=== PATIENT | male | born 1945 | race Caucasian/White ===

== ENCOUNTER 2020-10-29 10:34 | Day surgery (SDC) | payer MEDICARE, BC ==
[2020-10-22 16:12] LABS: BASOPHILS # (AUTO) 0.1 X10'3 (0-0.2); BASOPHILS % (AUTO) 1.1 % (0-1); EOSINOPHILS # (AUTO) 0.2 X10'3 (0-0.9); EOSINOPHILS % (AUTO) 2.6 % (0-6); LYMPHOCYTES # (AUTO) 1.4 X10'3 (1.1-4.8); LYMPHOCYTES % (AUTO) 17.2 % (21-51); MEAN CORPUSCULAR HEMOGLOBIN 31.2 PG (27.0-31.0); MEAN CORPUSCULAR HGB CONC 33.6 g/dL (33.0-36.5); MEAN CORPUSCULAR VOLUME 92.9 FL (78-98); MEAN PLATELET VOLUME 8.1 FL (7.4-10.4); MONOCYTES # (AUTO) 0.6 X10'3 (0-0.9); MONOCYTES % (AUTO) 6.9 % (2-12); NEUTROPHILS # (AUTO) 5.7 X10'3 (1.8-7.7); NEUTROPHILS % (AUTO) 72.2 % (42-75); PRE OP HEMATOCRIT 43.3 % (42.0-52.0); PRE OP HEMOGLOBIN 14.5 g/dL (14.0-17.9); PRE OP PLATELET COUNT 276 X10'3 (140-440); RED BLOOD COUNT 4.65 X10'6 (4.70-6.10); RED CELL DISTRIBUTION WIDTH 14.2 % (11.5-14.5)
[2020-10-22 16:23] LABS: ALBUMIN 3.4 G/DL (3.4-5.0); ALBUMIN/GLOBULIN RATIO 0.9 (1.1-1.5); ALKALINE PHOSPHATASE 169 IU/L (46-116); BLOOD UREA NITROGEN 16 MG/DL (7-18); CALCIUM 8.5 MG/DL (8.5-10.1); CHLORIDE 104 MMOL/L (99-107); PRE OP ALT 23 U/L (30-65); PRE OP ANION GAP 6 (8-16); PRE OP AST 15 U/L (10-37); PRE OP BILIRUB, TOTAL 0.9 MG/DL (0.0-1.0); PRE OP GLUCOSE 108 MG/DL (70-104); PRE OP POTASSIUM 4.2 MMOL/L (3.4-5.1); PRE OP SODIUM 141 MMOL/L (135-145); TOTAL CARBON DIOXIDE 30.8 MMOL/L (24-32); TOTAL PROTEIN 7.1 G/DL (6.4-8.2); eGFR 73 ML/MIN
[~2020-10-29] VITALS: Ht 180.3 cm; Wt 116.0 kg
[2020-10-29] VITALS (7 sets, daily range): BP systolic 113–155; BP diastolic 71–95
[~2020-10-29 10:34] MED LIST: AVADART PO; HYTRIN PO; MULT-1085 PO; VIT D PO; ceFAZolin 2gm in dextrose, iso 50 ML IV ONE; famotidine 20mg tablet PO ONE; ringers solution, lacted 1,000 ML IV SCH
[2020-10-29] MEDS ORDERED: BUPIVAcaine/PF 2.5 mg/ml (0.25%) 30ml vial ONE (12:23)
[2020-10-29] MEDS ORDERED: cloNIDine hcl/PF 100mcg/ml inj ONE (12:51)
[2020-10-29] MEDS ORDERED: fentaNYL/PF 50MCG/1 ML 2ML syringe ONE (12:52)
[2020-10-29] MEDS ORDERED: midazolam 2 mg/2 ml injection ONE (12:53)
[2020-10-29] MEDS ORDERED: ROPIVAcaine 0.5% (5mg/ml) 30ml vial ONE (12:56)
[2020-10-29] MEDS ORDERED: propofol inj 20 ML IV ONE (12:56)
[2020-10-29] MEDS ORDERED: sevoflurane 250ml liquid IH ONE (13:01)
[2020-10-29] MEDS ORDERED: dexamethasone sod phosphate 4mg/ml inj. ONE (13:53)
[2020-10-29] MEDS ORDERED: ondansetron/PF 4mg/2ml inj ONE (13:53)
[2020-10-29] MEDS ORDERED: morphine 2 MG/ML inj. syringe IV PRN (14:00)
[2020-10-29] MEDS ORDERED: ringers solution, lacted 1,000 ML IV SCH (14:00)
[2020-10-29] MEDS ORDERED: proCHLORperazine 10 MG/2 ml inj IV PRN (14:00)
[2020-10-29] MEDS ORDERED: meperidine/PF 25mg/ml syringe IV PRN ×3 (14:00)
[2020-10-29] MEDS ORDERED: ondansetron/PF 4mg/2ml inj IV PRN (14:00)
--- NOTE | 2020-10-29 14:10 | NUR ---
Received from OR via [facility] , accompanied by Anesthesiologist KHOI and report given by Anesthesiolgist. PATIENT WITH 20G PIV IN LEFT UE RUNNING LR AT 100. DENIES PAIN .RIGHT UE IN SPLINT THAT IS CDI. + CAP REFILL. 10L MASK ON WITH 97% SATURATIONS. CO PAIN. WILL MEDICATE AND REASSESS Addendum: 10/29/20 at 1417 by Rk Curiel RN, RN Amended: Links added.
[2020-10-29] MEDS: morphine 4 MG/ML inj SYRINge IV PRN ×2 (14:22→14:37)
[2020-10-29] MEDS ORDERED: acetaminophen 1,000mg/100ml IV 100 ML IV PRN (14:45)
[2020-10-29] MEDS ORDERED: HYDROmorphone/PF 0.2 MG/ML SYRINGE IV PRN ×2 (14:45)
--- NOTE | 2020-10-29 15:10 | NUR ---
I HAVE REVIEWED D/C INSTRUCTIONS WITH PATIENT AND FAMILY AND THEY HAVE VERBALIZED UNDERSTANDING. PATIENT D/C HOME WITH ALL BELONGINGS AND FAMILY GAVE TRANSPORT HOME. PATIENT GIVEN ALL DC INSTRUCTIONS. VSS. PAIN AT A TOLERABLE LEVEL. DRESSINGS CDI. Addendum: 10/29/20 at 1643 by Rk Curiel RN, RN Amended: Links added.
== END 2020-10-29 15:10 | disposition home or self-care (01) ==
LOC: PAS 10:34
PROVIDERS: ATTEND Orthopaedic Surgery Hand Surgery
DX: S52.501A Unspecified fracture of the lower end of right radius, initial encounter for closed fracture (principal); G56.01 Carpal tunnel syndrome, right upper limb; X58.XXXA Exposure to other specified factors, initial encounter; Y93.89 Activity, other specified; Y92.89 Other specified places as the place of occurrence of the external cause; Y99.8 Other external cause status; M25.531 Pain in right wrist; N40.0 Benign prostatic hyperplasia without lower urinary tract symptoms; M19.90 Unspecified osteoarthritis, unspecified site; E66.01 Morbid (severe) obesity due to excess calories; Z87.891 Personal history of nicotine dependence; Z85.828 Personal history of other malignant neoplasm of skin; Z79.899 Other long term (current) drug therapy; G89.18 Other acute postprocedural pain
CPT/HCPCS: 25607; 36415; 64415; 64721; 71046; 76942; 80053; 82948; 85025; 87635; 93005; A6222; C1713; J0131; J0735; J1100; J1170; J2175; J2250; J2270; J2405; J2704; J3010; J3490; J7120; A4215; A4618; A6449; A7000; J2795

== ENCOUNTER 2024-09-20 15:50 | Emergency (ER) | payer MEDICARE, BC ==
[~2024-09-20] VITALS: Ht 177.8 cm; Wt 117.0 kg
[~2024-09-20 15:50] MED LIST changes: -ceFAZolin 2gm in dextrose, iso 50 ML IV ONE; -famotidine 20mg tablet PO ONE; -ringers solution, lacted 1,000 ML IV SCH
[2024-09-20 15:53] VITALS: TEMP 98
[2024-09-20] MEDS ORDERED: CEPH-585 PO (16:30)
[2024-09-20] MEDS ORDERED: HYDR-3965 PO (16:30)
[2024-09-20] MEDS: LIDOcaine 1% 30ml preserv. free vial IJ ONE (16:44)
[2024-09-20 17:21] VITALS: BP 130/76; PULSE 67; RESP 18; O2SAT 98
== END 2024-09-20 17:23 | disposition home or self-care (01) ==
LOC: ER 15:50
DX: S62.631B Displaced fracture of distal phalanx of left index finger, initial encounter for open fracture (principal); S67.195A Crushing injury of left ring finger, initial encounter; W23.0XXA Caught, crushed, jammed, or pinched between moving objects, initial encounter; Y93.89 Activity, other specified; Y92.89 Other specified places as the place of occurrence of the external cause; Y99.8 Other external cause status
CPT/HCPCS: 12001; 29130; 73140; 99283; A6222; A6449; J7030; Z7610